=== PATIENT | female | born 1995 | race African-American/Black ===

== ENCOUNTER 2017-08-01 18:48 | Emergency (ER) | payer MEDICAID ==
[2017-08-01 19:42] LABS: BILIRUBIN,URINE NEGATIVE (NEGATIVE); GLUCOSE, URINE (UA) NEGATIVE (NEGATIVE); KETONES,URINE (UA) NEGATIVE (NEGATIVE); LEUKOCYTE ESTERASE, URINE NEGATIVE (NEGATIVE); NITRITE,URINE NEGATIVE (NEGATIVE); OCCULT BLOOD,URINE NEGATIVE (NEGATIVE); PH,URINE 5.5 PH (5.0-7.5); PROTEIN,URINE NEGATIVE (NEGATIVE); UROBILINOGEN,URINE 0.2 (NORMAL) E.U./dL (NORMAL)
[2017-08-01 19:44] LABS: CLARITY,URINE CLEAR (CLEAR); HCG UR QUAL POSITIVE
[2017-08-01 20:06] LABS: BASOPHILS % (AUTO) 0.3 %; EOSINOPHILS # (AUTO) 0.1 10^3/uL (0.0-0.7); EOSINOPHILS % (AUTO) 0.9 %; HGB - HEMOGLOBIN 12.3 g/dL (12.0-16.0); LYMPHOCYTES # (AUTO) 2.1 10^3/uL (1.5-3.5); LYMPHOCYTES % (AUTO) 32.8 %; MEAN CORPUSCULAR HEMOGLOBIN 27.9 pg (27.0-31.0); MEAN CORPUSCULAR HGB CONC 32.5 g/dL (32.0-36.0); MEAN CORPUSCULAR VOLUME 85.8 fL (81.0-99.0); MEAN PLATELET VOLUME 8.6 fL (7.9-10.8); MONOCYTES # (AUTO) 0.5 10^3/uL (0.0-1.0); NEUTROPHILS # (AUTO) 3.6 10^3/uL (1.5-6.6); PLT - PLATELET COUNT 308 10^3/uL (130-450); RED BLOOD COUNT 4.41 10^6/uL (4.20-5.40); RED CELL DISTRIBUTION WIDTH 13.5 % (12.0-15.0); WHITE BLOOD COUNT 6.3 x10^3/uL (4.8-10.8)
[2017-08-01 20:19] LABS: ALBUMIN 3.6 g/dL (3.2-5.5); BILIRUBIN,TOTAL 0.3 mg/dL (0.2-1.0); CALCIUM 8.8 mg/dL (8.5-10.3); CREATININE 0.5 mg/dL (0.4-1.0); TOTAL PROTEIN 7.2 g/dL (6.7-8.2)
--- NOTE | 2017-08-01 20:31 | ED Physician Documentation ---
PD HPI ABD PAIN - Stated complaint Stated Complaint: ABD PX/VOMITING - Chief complaint Chief Complaint: Abd Pain - History obtained from History obtained from: Patient - History of Present Illness Timing - onset: Enter time (18:00), Today Timing - duration: Hours Timing - details: Abrupt onset Pain level max: 9 Pain level now: 0 Quality: Pain Location: Other (patient indicates location with a line that goes from epigastrium to RUQ, down to RLQ) Radiation: Other (does not radiate) Improved by: Other (no ameliorating factors) Worsened by: Palpation Associated symptoms: Nausea, Vomiting. No: Fever, Diarrhea, Constipation Similar symptoms before: Has not had sx before Recently seen: Not recently seen - Additional information Additional information: sudden onset abdominal pain, predominantly midline upper and right upper abdomen , 6 PM while at rest, with nausea and vomiting. By the time of ED evaluation she says her symptoms have resolved. Denies h/o similar symptoms. She is approximately 9 weeks . Review of Systems Constitutional: denies: Fever, Chills, Sweats Cardiac: denies: Reviewed and negative Respiratory: denies: Reviewed and negative GI: reports: Abdominal Pain, Nausea, Vomiting. denies: Abdominal Swelling, Constipation, Diarrhea : reports: Now EGA (9 weeks). 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 - Present Medications Home Medications: Ambulatory Orders Medication Instructions Recorded Confirmed No Known Home Medications [No 08/01/17 08/01/17 Known Home Medications] - Allergies Allergies/Adverse Reactions: Allergies Allergy/AdvReac Type Severity Reaction Status Date / Time No Known Drug Allergies Allergy Verified 08/01/17 19:00 - Social History Does the pt smoke?: Yes Smoking Status: Current every day smoker Does the pt drink ETOH?: Yes Does the pt have substance abuse?: No - Immunizations Immunizations are current?: Yes - POLST Patient has POLST: No PD ED PE NORMAL - Vitals Vital signs reviewed: Yes - General General: Alert and oriented X 3, No acute distress, Well developed/nourished - HEENT HEENT: Moist mucous membranes - Cardiac Cardiac: RRR, No murmur - Respiratory Respiratory: No respiratory distress, Clear bilaterally - Abdomen Abdomen: Normal bowel sounds, Soft, Non tender, Non distended - Back Back: No CVA TTP Results - Vitals Vitals: Vital Signs - 24 hr 08/01/17 08/01/17 18:54 22:39 Temperature 36.4 C L Heart Rate 83 64 Respiratory 16 16 Rate Blood Pressure 130/90 H 122/81 H O2 Saturation 97 100 Oxygen O2 Source Room air - Labs Labs: Laboratory Tests 08/01/17 08/01/17 08/01/17 19:08 19:57 19:57 WBC 6.3 RBC 4.41 Hgb 12.3 Hct 37.8 MCV 85.8 MCH 27.9 MCHC 32.5 RDW 13.5 Plt Count 308 MPV 8.6 Neut # (Auto) 3.6 Lymph # (Auto) 2.1 [place] # (Auto) 0.5 Eos # (Auto) 0.1 Baso # (Auto) 0.0 Absolute Nucleated RBC 0.00 Nucleated RBC % 0.0 Sodium 134 L Potassium 3.4 L Chloride 102 Carbon Dioxide 25 Anion Gap 7.0 BUN 6 Creatinine 0.5 Estimated GFR (MDRD) 187 Glucose 95 Calcium 8.8 Total Bilirubin 0.3 AST 15 ALT 11 Alkaline Phosphatase 43 Total Protein 7.2 Albumin 3.6 Globulin 3.6 Albumin/Globulin Ratio 1.0 Lipase 22 HCG, Quant Urine Color YELLOW Urine Clarity CLEAR Urine pH 5.5 Ur Specific [place] <=1.005 Urine Protein NEGATIVE Urine Glucose (UA) NEGATIVE Urine Ketones NEGATIVE Urine Occult Blood NEGATIVE Urine Nitrite NEGATIVE Urine Bilirubin NEGATIVE Urine Urobilinogen 0.2 (NORMAL) Ur Leukocyte Esterase NEGATIVE Ur Microscopic Review NOT INDICATED Urine Culture Comments NOT INDICATED Urine HCG, Qual POSITIVE 08/01/17 19:57 WBC RBC Hgb Hct MCV MCH MCHC RDW Plt Count MPV Neut # (Auto) Lymph # (Auto) [place] # (Auto) Eos # (Auto) Baso # (Auto) Absolute Nucleated RBC Nucleated RBC % Sodium Potassium Chloride Carbon Dioxide Anion Gap BUN Creatinine Estimated GFR (MDRD) Glucose Calcium Total Bilirubin AST ALT Alkaline Phosphatase Total Protein Albumin Globulin Albumin/Globulin Ratio Lipase HCG, Quant 91659.00 Urine Color Urine Clarity Urine pH Ur Specific [place] Urine Protein Urine Glucose (UA) Urine Ketones Urine Occult Blood Urine Nitrite Urine Bilirubin Urine Urobilinogen Ur Leukocyte Esterase Ur Microscopic Review Urine Culture Comments Urine HCG, Qual - Rads (name of study) pelvic US Radiology: Prelim report reviewed, See rad report RUQ US Radiology: Prelim report reviewed, See rad report PD MEDICAL DECISION MAKING - ED course Complexity details: reviewed results, re-evaluated patient, considered differential, d/w patient - Sepsis Event Vital Signs: Vital Signs - 24 hr 08/01/17 08/01/17 18:54 22:39 Temperature 36.4 C L Heart Rate 83 64 Respiratory 16 16 Rate Blood Pressure 130/90 H 122/81 H O2 Saturation 97 100 Oxygen O2 Source Room air Departure - Departure Disposition: 01 Home, Self Care Clinical Impression: , Abdominal pain Condition: Good Instructions: ED Abdominal Pain Unkn Cause, ED Care Follow-Up: [facility] [Provider Group] [facility] [Provider Group] Prosper Babcock DO [Provider Admit Priv/Credential] - Discharge Date/Time: 08/01/17 23:32
--- NOTE | 2017-08-01 22:37 | Ultrasound Report ---
Procedure Date: 08/01/2017 Accession Number: [id number] / [id number] Procedure: US - OB First Trimester CPT Code: FULL RESULT: EXAM: OB FIRST TRIMESTER. EXAM DATE: 08/01/2017 09:55 PM. CLINICAL HISTORY: Lower abdominal pain; early . LMP 05/25/2017, EGA 9 weeks 5 days, FAWN 03/01/2018. COMPARISON: None. TECHNIQUE: Transabdominal exam. Real-time scanning performed by the driver/guide with static images saved. FINDINGS: Single intrauterine gestational sac with a mean sac diameter 42 mm corresponding to 9 weeks 4 days gestational age. Shape of the gestational sac appears within normal limits. Within the gestational sac is an embryo with a crown-rump length of 18.2 mm corresponding to 8 weeks 2 days gestational age, FAWN 03/11/2018. Embryo heart rate measures 163 beats per minute. Yolk sac measures 3.6 mm. Yolk sac appears within normal limits. 9.3 mm eva-gestational bleed is noted. Too early to evaluate amniotic fluid volume. Too early to determine location of placenta. The uterus is anteverted. Posterior lower uterine fibroid is suspected, seen on the images of the time 9:40 PM, but not seen on the images with the time 9:04 PM. The right ovary measures 2.5 x 1.5 x 1.5 cm with a volume of 2.9 cc. Left ovary measures 4.1 x 2.1 x 3.6 cm with a volume of 16 cc. Bilateral ovaries appear within normal limits, dominant follicle in the left ovary measures 2 cm. Bilateral adnexa appear unremarkable. No free fluid. IMPRESSION: Single living intrauterine with gestational age based on ultrasound today of 8 weeks 2 days, FAWN 03/11/2018. Small eav-gestational bleed. See above. RADIA
[2017-08-01 22:40] VITALS: BP 122/81
--- NOTE | 2017-08-01 23:18 | Ultrasound Report ---
Procedure Date: 08/01/2017 Accession Number: [id number] / [id number] Procedure: US - Abdomen Limited CPT Code: FULL RESULT: EXAM: ABDOMEN ULTRASOUND LIMITED, RUQ EXAM DATE: 08/01/2017 10:49 PM. CLINICAL HISTORY: RUQ pain. COMPARISON: None. TECHNIQUE: Real-time scanning was performed with static images obtained. FINDINGS: Liver: No focal lesion identified. 17.6 cm. Main portal vein flow: Hepatopetal. Gallbladder: Normal. No stones, wall thickening, or sonographic Steve's sign. Biliary System: CBD measures 3 mm. No intrahepatic or extrahepatic ductal dilatation. Other: Right kidney measures 11.1 cm and appears normal. Visualized portions of the pancreas are unremarkable. Inferior vena cava is patent where seen. IMPRESSION: Normal. No cholelithiasis or cholecystitis. RADIA
== END 2017-08-01 23:32 | disposition home or self-care (01) ==
LOC: ED 18:48
DX: O99.89 Other specified diseases and conditions complicating pregnancy, childbirth and the puerperium (principal); O99.331 Smoking (tobacco) complicating pregnancy, first trimester; R10.10 Upper abdominal pain, unspecified; Z3A.09 9 weeks gestation of pregnancy
CPT/HCPCS: 36415; 76705; 76801; 80053; 81001; 81003; 81025; 83690; 84702; 85025; 87086; 99283